=== PATIENT | male | born 1975 | race African-American/Black ===

== ENCOUNTER 2019-07-04 12:38 | Emergency (ER) | payer OTHER ==
[~2019-07-04] VITALS: Ht 193 cm; Wt 93.0 kg
== END 2019-07-04 14:07 | disposition home or self-care (01) ==
LOC: ED 12:38
DX: S92.351A Displaced fracture of fifth metatarsal bone, right foot, initial encounter for closed fracture (principal); F17.200 Nicotine dependence, unspecified, uncomplicated; Z88.0 Allergy status to penicillin; X50.1XXA Overexertion from prolonged static or awkward postures, initial encounter; Y93.01 Activity, walking, marching and hiking; Y92.89 Other specified places as the place of occurrence of the external cause; Y99.8 Other external cause status

== ENCOUNTER 2019-09-05 16:13 | Inpatient (IN) | payer OTHER ==
[~2019-09-05] VITALS: Ht 195.5 cm; Wt 108.9 kg
--- NOTE | ~2019-09-05 | EKG ---
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
[2019-09-05 16:14] VITALS: BP 143/71
[2019-09-05 16:38] LABS: BILIRUBIN NEGATIVE (NEGATIVE); BLOOD NEGATIVE (NEGATIVE); CLARITY CLEAR (CLEAR); COLOR YELLOW (YELLOW); GLUCOSE NEGATIVE (NEGATIVE); KETONE NEGATIVE (NEGATIVE); LEUKO ESTERASE NEGATIVE (NEGATIVE); NITRITE NEGATIVE (NEGATIVE); UROBILINOGEN 0.2 E.U./dl (0.2-1.0)
[2019-09-05 16:46] LABS: BASO % 0.1 % (0.0-1.0); EOS # 0.1 10*3/uL (0.0-0.4); EOS % 1.4 % (1.0-4.0); HEMATOCRIT 46.3 % (42.0-52.0); HEMOGLOBIN 14.8 g/dl (14.0-18.0); LYMPH # 2.7 10*3/uL (1.3-4.4); LYMPH % 37.6 % (27.0-41.0); MEAN CORPUSCULAR HGB 29.1 pg (27.0-31.0); MEAN PLATELET VOLUME 10.9 fl (9.6-12.3); MONO # 0.5 10*3/uL (0.1-1.0); MONO % 6.6 % (3.0-9.0); NEUT # 3.8 10*3/uL (2.3-7.9); NEUT % 53.6 % (47.0-73.0); PLATELET COUNT AUTOMATED 220 10*3/uL (130-400); RED BLOOD COUNT 5.09 10*6/uL (4.50-5.90); RED CELL DISTRI WIDTH 13.4 % (0-14.5); WHITE BLOOD COUNT 7.1 10*3/uL (4.8-10.8)
[2019-09-05 16:47] LABS: EPITHELIAL CELLS 0-2
[2019-09-05 16:50] LABS: URINE AMPHETAMINES < 1000 (1000ng/ml); URINE BARBITURATES < 200 (200ng/ml); URINE BENZODIAZEPINES < 200 (200ng/ml); URINE CANNABINOIDS (THC) < 50 (50ng/ml); URINE COCAINE < 300 (300ng/ml); URINE METHADONE > 300 (300ng/ml); URINE OPIATES < 300 (300ng/ml); URINE PHENCYCLIDINE < 25 (25ng/ml)
[2019-09-05 17:01] LABS: ALBUMIN 3.8 gm/dl (3.1-4.5); ALKALINE PHOSPHATASE 48 U/L (45-117); BUN 14 mg/dl (7-24); CHLORIDE 103 mmol/L (98-107); CREATININE 1.09 mg/dL (0.70-1.30); POTASSIUM 4.3 mmol/L (3.5-5.1); SGOT/AST 17 IU/L (3-35); SGPT/ALT 33 U/L (12-78); SODIUM 139 mmol/L (136-145); TOTAL PROTEIN 7.5 gm/dL (6.4-8.2)
[2019-09-05 17:07] LABS: ACETAMINOPHEN (TYLENOL) < 10.0 ug/ml (10-30); ETHYL ALCOHOL < 3.0 mg/dl (<3)
--- NOTE | 2019-09-05 18:08 | NUR ---
[place] ADMISSION. ABLE TO ANSWER QUESTIONS APPROPRIATLEY. BELONGINGS SHEET FILLED OUT, ORDERS RECEIVED. PT UNDERSTANDS [employer] POLICY
[2019-09-05] MEDS ORDERED: HYDROXYZINE HCL10 MG PO (18:47)
[2019-09-05] MEDS ORDERED: BUSPIRONE HCL10 MG PO (18:49)
[2019-09-05] MEDS ORDERED: ATARAX,VISTARIL10 MG PO (18:49)
[2019-09-05] MEDS ORDERED: ZYPREXA7.5 M1 PO (18:50)
--- NOTE | 2019-09-05 19:57 | NUR ---
PT REQUESTED PRN MEDICATIONS FOR WITHDRAWL SYMPTOMS, SEE EMAR. WILL MONITOR FOR EFFECTIVENESS
[2019-09-05 20:00] VITALS: BP 127/75
[2019-09-06] VITALS: BP 117/54
--- NOTE | 2019-09-06 05:00 | NUR ---
24 HR chart check completed.
[2019-09-06 08:00] VITALS: BP 108/66
--- NOTE | 2019-09-06 09:22 | NUR ---
PATIENT REFUSING LOVENOX. RATIONALE FOR LOVENOX GIVEN. PATIENT STILL REFUSING.
[2019-09-06 12:00] VITALS: BP 101/60
--- NOTE | 2019-09-06 15:18 | NUR ---
PATIENT IS GOING TO FOLLOW UP WITH [facility] FOR HIS AFTERCARE PLAN. DACIA TALAVERA B.A. PEDIATRIC AUDIOLOGIST
[2019-09-06 16:00] VITALS: BP 103/62
[2019-09-06 20:00] VITALS: BP 104/66
--- NOTE | 2019-09-06 21:35 | NUR ---
PATIENT MEDICATED PER PRN ORDER AND PATIENT REQUEST WITH TRAZODONE FOR INABILITY TO SLEEP. SEE EMAR. REINFORCED USE OF CALL LIGHT.
[2019-09-07] VITALS: BP 114/66
--- NOTE | 2019-09-07 07:15 | NUR ---
ARRIVED ON SHIFT, INTRODUCED TO PATIENT, BEDSIDE REPORT RECEIVED, NO NEEDS VOICED AT THIS TIME, WHITE BOARD UPDATED.
--- NOTE | 2019-09-07 07:42 | NUR ---
Shift chart check completed.
[2019-09-07 08:00] VITALS: BP 115/69
--- NOTE | 2019-09-07 09:00 | NUR ---
case management receied a message from Abena at [facility] regarding patient's insurance terming last month, case management contacted Asiya from [employer] to talk with patient regarding this and also notified Aga from [facility]
--- NOTE | 2019-09-07 15:32 | NUR ---
PATIENT IS GOING TO [facility] FOR HIS AFTERCARE PLAN. [facility] WILL BE TRANSPORTING HIM BACK TO FACILITY. DACIA TALAVERA B.A. ASSOCIATE STORE LEADER
[2019-09-07 16:00] VITALS: BP 90/56
[2019-09-07 20:00] VITALS: BP 102/56
[2019-09-08] VITALS: BP 101/41
--- NOTE | 2019-09-08 01:59 | NUR ---
24 HR chart check completed.
[2019-09-08 07:19] LABS: BASO % 0.4 % (0.0-1.0); EOS # 0.2 10*3/uL (0.0-0.4); EOS % 3.2 % (1.0-4.0); HEMATOCRIT 44.7 % (42.0-52.0); HEMOGLOBIN 13.9 g/dl (14.0-18.0); LYMPH # 4.2 10*3/uL (1.3-4.4); LYMPH % 56.1 % (27.0-41.0); MEAN CELL VOLUME 89.2 fl (80.0-94.0); MEAN CORPUSCULAR HGB 27.7 pg (27.0-31.0); MEAN CORPUSCULAR HGB CONC 31.1 g/dl (33.0-37.0); MEAN PLATELET VOLUME 11.4 fl (9.6-12.3); MONO # 0.5 10*3/uL (0.1-1.0); MONO % 6.6 % (3.0-9.0); NEUT # 2.5 10*3/uL (2.3-7.9); NEUT % 32.9 % (47.0-73.0); PLATELET COUNT AUTOMATED 227 10*3/uL (130-400); RED BLOOD COUNT 5.01 10*6/uL (4.50-5.90); RED CELL DISTRI WIDTH 13.6 % (0-14.5); WHITE BLOOD COUNT 7.5 10*3/uL (4.8-10.8)
[2019-09-08 07:46] LABS: CREATININE 1.14 mg/dL (0.70-1.30)
[2019-09-08 08:00] VITALS: BP 126/42
--- NOTE | 2019-09-08 08:53 | NUR ---
Patient resting quietly with no c/o discomfort. Respirations easy and regular. Vital signs stable. No overt distress. Continue to monitor the pt. MICHAELA ALCALA
[2019-09-08 12:00] VITALS: BP 128/48
--- NOTE | 2019-09-08 13:54 | NUR ---
PT DISCHARGED WITH [facility]. ALL BELONGINGS SENT WITH PT. NO IV SITE. PT IS NONMONITORED. DISCHARGE PAPERWORK GIVEN TO PT AND EXPLAINED. ALL QUESTIONS ANSWERED. PT AMBULATORY ON DISCHARGE.
== END 2019-09-08 13:54 | DRG 773 ==
LOC: ED 16:13 → EDHOLD 17:20 → 4E 17:20
PROVIDERS: Nurse Practitioner Family; ADMIT Internal Medicine
DX: F11.23 Opioid dependence with withdrawal (principal); F14.10 Cocaine abuse, uncomplicated; F31.9 Bipolar disorder, unspecified; J45.20 Mild intermittent asthma, uncomplicated; Z72.0 Tobacco use; Z71.6 Tobacco abuse counseling; Z88.0 Allergy status to penicillin; Z82.49 Family history of ischemic heart disease and other diseases of the circulatory system; Z83.3 Family history of diabetes mellitus